=== PATIENT | male | born 1965 | race Caucasian/White ===

== ENCOUNTER 2024-09-18 07:54 | Day surgery (SDC) | payer BC, OTHER ==
[2024-09-15 16:22] LABS: Absolute Monocytes 0.4 K/uL (0.1-1.3); Absolute Neutrophil 6.2 K/uL (1.8-8.0); Basophils % 0.2 % (0-1.3); Eosinophils % 0.3 % (0-4.4); Hematocrit 50.4 % (39.6-49.0); Hemoglobin 17.4 g/dL (13.6-17.9); Lymphocytes % 13.4 % (15.3-44.8); MCH 31.6 pg (27.0-35.0); MCHC 34.5 g/dL (32.0-36.0); MCV 91.4 fL (80-100); MPV 7.4 fL (7.6-11.3); Monocytes % 5.8 % (3.3-12.3); Neutrophils % 80.3 % (41.7-73.7); Nucleated Red Blood Cells % 0.2 % (0-0); Platelets 218 thou/uL (152-406); RBC Red Blood Cell Count 5.52 M/uL (4.33-5.43); Red Cell Distribution Width 12.9 % (12.1-15.2)
--- NOTE | 2024-09-15 16:34 | RAD REPORT ---
EXAM: Chest Pa And Lat (2 Views) HISTORY: Pre op pending hernia repair COMPARISON: 02/17/2023 FINDINGS: LUNGS/PLEURA: The lungs are clear. No pleural effusions or pneumothorax. No pulmonary edema. MEDIASTINUM: The mediastinal silhouette is within normal limits. CARDIAC: The cardiac silhouette is within normal limits. UPPER ABDOMEN: No significant abnormality. BONES: No acute fracture. ACDF in the cervical spine. LINES/TUBES/OTHER: N/A IMPRESSION: No evidence of acute cardiopulmonary disease
[2024-09-15 17:08] LABS: Anion Gap 9.2 mEq/L (5.0-15.0); Potassium 3.2 mEq/L (3.5-5.1)
[2024-09-18] MEDS: NA CHLORIDE 0.9% 1,000 ML ONE (08:15)
[2024-09-18] MEDS ORDERED: FENTANYL CITR 100 MCG/2 ML ONE ×2 (08:44→09:15)
[2024-09-18] MEDS ORDERED: ONDANSETRON 4 MG/2 ML VIAL ONE (08:44)
[2024-09-18] MEDS ORDERED: MIDAZOLAM HCL 2 MG/2 ML INJ ONE (08:44)
[2024-09-18] MEDS ORDERED: LIDOCAINE 2% MPF 5 ML VIAL ONE (08:44)
[2024-09-18] MEDS ORDERED: SUGAMMADEX SODIUM 200 MG/2 ML VIAL IV ONE (08:44)
[2024-09-18] MEDS ORDERED: ROCURONIUM 50 MG/5 ML VIAL IV ONE (08:44)
[2024-09-18] MEDS ORDERED: propofoL 200 MG/20 ML VIAL IV ONE (08:44)
[2024-09-18] MEDS ORDERED: dexAMETHasone 10 MG/ML VIAL ONE (09:11)
[2024-09-18] MEDS: CEFAZOLIN SODIUM 1 GM/VIAL ONE (09:11)
[2024-09-18] MEDS ORDERED: EPHEDRINE SULF 50 MG/ML VIAL ONE (09:34)
[2024-09-18] MEDS ORDERED: GLYCOPYRROLATE 0.2 MG/ML SYR ONE (09:36)
[2024-09-18] MEDS ORDERED: KETOROLAC 30 MG/ML INJ ONE (09:48)
--- NOTE | 2024-09-18 10:01 | P.BOP ---
Preoperative diagnosis: incisional ventral hernia 5cm Postoperative diagnosis: same Primary procedure: Laparoscopic repair of incisional ventral hernia 5cm with mesh Reception Centre Manager: Sophia Amaral (Sky) Estimated blood loss: <10cc Specimen: sac Findings: as above Anesthesia: General Complications: None Implants: ventralight ST with echo [id number] Transferred to: Recovery Room Condition: Good
[2024-09-18] MEDS: ONDANSETRON 4 MG/2 ML VIAL ONE (10:32)
[2024-09-18] MEDS: HYDROMORPHONE HCL 1 MG/ML INJ ONE (10:33)
[2024-09-18] MEDS ORDERED: HYDROCODONE/APAP 5/325 MG TAB ONE (11:25)
[2024-09-18 14:06] VITALS: BP 131/78; TEMP 97.5; O2SAT 95
--- NOTE | 2024-09-19 12:27 | EKG ---
Test Date: 2024-09-15 Test Time: 16:01:07 Chief Accountant: CATALINA MEASUREMENT RESULTS: Intervals: Rate: 99 CA: 164 QRSD: 82 QT: 344 QTc: 441 [place]: P: 44 CA: 164 QRS: 82 T: 56 INTERPRETIVE STATEMENTS: Normal sinus rhythm Possible Left atrial enlargement Borderline ECG Compared to ECG 02/23/2023 11:22:08 No significant changes Electronically Signed On 09-19-24 12:19:22 RODDING MACHINE TENDER by Alireza Lujan
--- NOTE | 2024-09-19 13:29 | OP ---
Date of Procedure: 09/18/2024 Surgeon: Edy Nixon MD Field Liability Generalist: KOLE Logan Preoperative Diagnosis: Incisional ventral hernia 5 cm. Postoperative Diagnosis: Incisional ventral hernia 5 cm. Procedure: Laparoscopic repair of incisional ventral hernia with mesh about 5 cm. Estimated Blood Loss: Less than 10 cc. Specimen: Hernia sac. Anesthesia: General plus local. Implant: A Ventralight ST with Echo Positioning System 15 x 10 cm. Indications: This is the case of a female, who came to us with above diagnosis. Fully explained the benefits, alternatives, and risks of laparoscopic versus open repair of incisional ventral hernia, w hich include, but not limited to, infection, bleeding, damage to adjacent structures, anesthesia comp lication, recurrence, MS, and even . She also understands this may not relieve any symptoms. S he might need more than one surgical intervention. She also understand we might have to use mesh in that region. So pros and cons of mesh use were discussed with the patient and all the questions were answered to her satisfaction. She signed a consent. Description Of Procedure: Patient was brought to the operating room, placed in supine position. Ane sthesia was induced without complication. Abdomen was prepped and draped in the usual sterile fashio n. A time-out was called. Previously in the holding room, we marked the area of concern. We made a n incision over that region over that scar. Incision was carried down until we found the hernia sac. After that, we carefully removed the hernia sac from the rest of the subcutaneous tissue, opened th at, found some omentum present. Part of that had to be removed, some of them was allowed to come rigoberto k after ligating to make sure there was no bleeding. Hernia sac was removed. We noticed that the fa scial edges does not hold stitches properly, so we were afraid that if we do not use the mesh, this w ill increase the chance of recurrence. So we proceeded to use the mesh. We put a Vicryl figure-of-e ight fashion multiple times. We put a Giuliana trocar through that area, obtained pneumoperitoneum. W e put 5 mm trocars to the left and right of the abdomen, changed the cameras and then looked at the m iddle and then realized more or less the size of the defect and how much we need of the mesh to cover that. We wanted to cover the area about 3-5 cm. So we selected about a 15 x [address] m esh which was positioned through the umbilical incision. All the sutures were put together in a figu re-eight fashion except one. Thus we inflated the balloon of that Ventralight system and made sure t hat mesh goes nice and flat against the abdominal wall. We fixated that area with SorbaFix stapling device, then removed the balloon under direct visualization to one of the trocar sites and further fi xated this circumferentially to diminish the chance of intestines coming in between. After fully ins pecting and making sure that the mesh looked nice and flat and made sure the area of the omentum look s dry with no bleeding or no enterotomies, at that moment, I proceeded then to under direct visualiza tion, deflated pneumoperitoneum, finished closing the fascia with #1 Vicryl. Irrigated subcutaneous tissue, closed that with 3-0 chromic and the skin was approximated. Sponge counts and instrument cou nts were correct. Patient tolerated the procedure well. Patient sent to Recovery in stable conditio n. CK/CASEY Voice ID: [id number] Report ID: [id number]
--- NOTE | 2024-09-19 13:32 | DS ---
Date of Discharge: 09/18/2024 Diagnosis: Incisional ventral hernia. Procedure: Laparoscopic repair of incisional ventral hernia with mesh about 5 cm. Condition: Stable. Disposition: Home. Activities: As tolerated. No heavy lifting. Discharge Instructions: Follow up in my office in 1 week. Call for appointment at [phone]. Keep ar ea dry for 48 hours, then may shower. LYNN Voice ID: [id number] Report ID: [id number]
== END 2024-09-18 12:15 | disposition home or self-care (01) ==
LOC: OR 07:54
PROVIDERS: ATTEND Surgery
PROC: 0WUF4JZ Supplement Abdominal Wall with Synthetic Substitute, Percutaneous Endoscopic Approach (ICD-10-PCS; principal; 2024-09-18 09:15)
DX: K43.2 Incisional hernia without obstruction or gangrene (principal)
CPT/HCPCS: 85025; 80048; 36415; 82947 ×2; 88302; 71046; 49593; J2704; J2003; J2250; J3010 ×2; J1100; J1171; J2405 ×2; J7030; J0690; 93005